=== PATIENT | male | born 1960 | race Caucasian/White ===

== ENCOUNTER 2024-08-31 10:51 | Inpatient (IN) | payer OTHER, MEDICAID ==
[~2024-08-31] VITALS: Ht 152.4 cm; Wt 58.0 kg
[~2024-08-31 10:51] MED LIST: GLYB5TAB8 PO; LIRA18IN2; METF-372 PO; TRIA25CA PO
--- NOTE | 2024-08-31 11:29 | ED.PDOC ---
History of Present Illness HPI Comments 63 y/o M, with PMHx of DM, cancer, anxiety, and depression, brought in by mother presents to the ED for abnormal labs. Per patient's mother, she received a call from patient's disability doctor was told patient has hypernatremia and should take patient to ED for further evaluation. Patient complains, of new onset symptoms of abdominal pain with associated abdominal distension starting this morning (08/31/24). Patient's mother denies, fatigue, nausea, vomiting, poor appetite, or fever. No other symptoms or modifying factors present at this time. Time Seen by MD: 11:23 Primary Care Provider: ALLISON Reviewed Notes: Nurses Notes, Medications, Allergies Allergies: Coded Allergies: Amoxicillin (Verified Allergy, Mild, 07/07/10) Clavulanic Acid (Verified Allergy, Mild, 07/07/10) Fluoxetine (Verified Allergy, 12/14/10) Home Meds Reported Medications Metformin Hydrochloride (Metformin Hcl) 1,000 Mg Tab, 1500 MG PO QPM 12/15/10 Metformin Hydrochloride (Metformin Hcl) 1,000 Mg Tab, 1000 MG PO QAM 12/15/10 Glyburide (Glyburide) 5 Mg Tab, 10 MG PO IBID 12/15/10 Hydrochlorothiazide W/Triamter (Hctz/Triamterene) 1 Cap Cap, 37.5 MG PO QAM 07/07/10 Liraglutide (Victoza) 18 Mg/3 Ml Inj, DAILY 07/07/10 Information Source: Patient, Relative (Mother) Mode of Arrival: Ambulatory Severity: Moderate Timing: Hours Duration: Since onset Prehospital treatment: None Past Medical History PAST MEDICAL HISTORY: Anxiety, Cancer, Depression, DM, HTN Family History Family History: Unobtainable Social History Smoker: Quit Greater Than 1 Year, Cigarettes Alcohol: Rarely Drugs: Denies Drug Use Lives In: Home Constitutional: denies: chills, diaphoresis, fatigue, fever, malaise, sweats, weakness, others EENTM: denies: blurred vision, double vision, ear bleeding, ear discharge, ear drainage, ear pain, ear ringing, eye pain, eye redness, hearing loss, mouth pain, mouth swelling, nasal discharge, nose bleeding, nose congestion, nose billy n, photophobia, tearing, throat pain, throat swelling, voice changes, others Respiratory: denies: cough, hemoptysis, orthopnea, SOB at rest, shortness of breath, SOB with excertion, stridor, wheezing, others Cardiovascular: denies: chest pain, dizzy spells, diaphoresis, Dyspnea on exertion, edema, irregular heart beat, left arm pain, lightheadedness, palpitations, PND, syncope, others Gastrointestinal: reports: abdomen distended, abdominal pain; denies: blood streaked bowels, constipated, diarrhea, dysphagia, difficulty swallowing, hematemesis, melena, nausea, poor appetite, poor fluid intake, rectal bleeding, rectal pain, vomiting, others Genitourinary: denies: burning, dysuria, flank pain, frequency, hematuria, incontinence, penile discharge, penile sore, pain, testicle pain, testicle swelling, urgency, others Neurological: denies: dizziness, fainting, headache, left sided numbness, left sided weakness, numbness, paresthesia, pre-existing deficit, right sided numbness, right sided weakness, seizure, speech problems, tingling, tremors, weakness, others Musculoskeletal: denies: back pain, gout, joint pain, joint swelling, muscle pain, muscle stiffness, neck pain, others Integumetry: denies: bruises, change in color, change in hair/nails, dryness, laceration, lesions, lumps, rash, wounds, others Allergic/Immunocompromised: denies: Difficulty Healing, Frequent Infections, Hives, Itching, others Hematologic/Lymphatic: denies: anemia, blood clots, easy bleeding, easy bruising, swollen glands, others Endocrine: denies: excessive hunger, excessive sweating, excessive thirst, excessive urination, flushing, intolerance to cold, intolerance to heat, unexplained weight gain, unexplained weight loss, others Psychiatric: denies: anxiety, bipolar disorder, depression, hopeless, panic disorder, schizophrenia, sleepless, suicidal, others All Other Systems: Reviewed and Negative Physical Exam General Appearance: Moderate Distress HEENT: Normal ENT Inspection, Pharynx Normal, TMs Normal Neck: Full Range of Motion, Non-Tender, Normal, Normal Inspection Respiratory: Chest Non-Tender, Lungs Clear, No Accessory Muscle Use, No Respiratory Distress, Normal Breath Sounds Cardiovascular: No Edema, No JVD, No Murmur, No Gallop, Normal Peripheral Pulses, Regular Rate/Rhythm Breast Exam: Deferred Gastrointestinal: Distended, No Organomegaly, No Pulsatile Mass, Normal Bowel Sounds, Soft, Tenderness Genitalia: Deferred Pelvic: Deferred Rectal: Deferred Extremities: No calf tenderness, Normal capillary refill, Normal inspection, Normal range of motion, Non-tender, No pedal edema Musculoskeletal : Apperance: Normal Neurologic: Alert, substation operator helper generation II-XII nml as Tested, No Motor Deficits, Normal Affect, Normal Mood, No Sensory Deficits Cerebellar Function: Normal Reflexes: Normal Skin: Dry, Normal Color, Warm Lymphatic: No Adenopathy Was a procedure done? Was a procedure done?: No Differential Dx Considerations may include: GASTRITIS, FOOD POISING, HYPERNATREMIA X-Ray, Labs, Meds, VS Vital Signs Date Time Temp Pulse Resp B/P (MAP) Pulse Ox O2 Delivery O2 Flow Rate FiO2 08/31/24 14:08 65 16 143/58 (86) 96 08/31/24 12:56 98.3 70 19 154/66 (95) 99 98.3 08/31/24 11:37 97.9 78 16 147/76 (99) 97 97.9 Lab Test 08/31/24 11:50 08/31/24 11:00 Range/Units White Blood Count 6.6 4.4-10.8 10^3/uL Red Blood Count 4.76 4.5-5.90 10^6/uL Hemoglobin 13.6 13.5-17.5 g/dL Hematocrit 41.6 41.0-53.0 % Mean Corpuscular Volume 87.3 80.0-100.0 fL Mean Corpuscular Hemoglobin 28.5 28.0-32.0 pg Mean Corpuscular Hemoglobin Concent 32.7 32.0-36.0 g/dL Red Cell Distribution Width 16.2 H 11.8-14.3 % Platelet Count 301 140-450 10^3/uL Mean Platelet Volume 6.9 6.9-10.8 fL Neutrophils (%) (Auto) 69.3 37.0-80.0 % Lymphocytes (%) (Auto) 18.4 10.0-50.0 % Monocytes (%) (Auto) 9.0 0.0-12.0 % Eosinophils (%) (Auto) 2.2 0.0-7.0 % Basophils (%) (Auto) 1.1 0.0-2.0 % Neutrophils # (Auto) 4.6 1.6-8.6 10 ^3/uL Lymphocytes # (Auto) 1.2 0.4-5.4 10 ^3/uL Monocytes # (Auto) 0.6 0-1.3 10 ^3/uL Eosinophils # (Auto) 0.1 0-0.8 10 ^3/uL Basophils # (Auto) 0.1 0-0.2 10 ^3/uL Nucleated Red Blood Cells 0.1 % Sodium Level 129 L 136-145 mmol/L Potassium Level 3.5 3.5-5.1 mmol/L Chloride Level 94 L 98-107 mmol/L Carbon Dioxide Level 27 20-31 mmol/L Anion Gap 8 5-15 Blood Urea Nitrogen 9 9-23 mg/dL Creatinine 0.56 L 0.700-1.30 mg/dL Glomerular Filtration Rate Calc 112 >90 mL/min BUN/Creatinine Ratio 16.1 10.0-20.0 Serum Glucose 122 H 74-106 mg/dL Calcium Level 9.1 8.7-10.4 mg/dL Total Bilirubin 0.3 0.2-1.0 mg/dL Aspartate Amino Transferase (AST) 13 13-40 U/L Alanine Aminotransferase (ALT) 14 7-40 U/L Alkaline Phosphatase 52 46-116 U/L Total Protein 6.6 5.7-8.2 g/dL Albumin 4.4 3.2-4.8 g/dL Lipase 37 12-53 U/L Urine Color Colorless Yellow Urine Clarity Clear Clear Urine pH 7.0 5.0-9.0 Urine Specific [place] 1.014 1.001-1.035 Urine Protein Negative Negative Urine Ketones Negative Negative Urine Blood Negative Negative /uL Urine Nitrite Negative Negative Urine Bilirubin Negative Negative Urine Urobilinogen Normal Negative mg/dL Urine Leukocyte Esterase Negative Negative /uL Urine RBC 1 0 - 3 /hpf Urine Microscopic WBC < 1 0-3 /HPF Urine Squamous Epithelial Cells None seen <5 /hpf Urine Bacteria None seen None Seen /hpf Urine Glucose 4+ H Normal mg/dL CT ABD PEL: IMPRESSION: 1. Trace right pleural effusion. 2. Moderate fecal retention throughout the large bowel. No rectal fecal impaction. 3. Subcutaneous soft tissue induration seen in right paraumbilical region that could relate to recent injections. Mild diffuse subcutaneous edema is noted. 4. T12 vertebral plana with 5 mm retropulsion. Mild depression of the superior endplate of the L1 with less than 10% loss of height without retropulsion. 5. A 2.5 x 1.5 cm density seen in the right inguinal canal that may represent lymph node or fluid. This can be further evaluated by ultrasound if clinically indicated. The patient's CBC is within normal limits The chemistry panel is within normal limits The urine test is negative for any infection At this time, the patient was being admitted to the hospitalist. Images Reviewed?: Images reviewed and evaluated by me Time of 1ST Reevaluation: 11:53 Reevaluation 1ST: Unchanged Patient Education/Counseling: Diagnosis, Treatment, Prognosis Family Education/Counseling: Diagnosis, Treatment, Prognosis Departure 1 Departure Time of Disposition: 15:55 Impression: Primary Impression: Acute abdominal pain Additional Impressions: Electrolyte imbalance Fecal impaction Disposition: ADMITTED INPATIENT Admit to: Med Surg Condition: Fair Critical Care Note Critical Care Time?: No Stability Stability form required: No Heart Score Heart Score: Heart Score Response (Comments) Value History N/A 0 EKG N/A 0 Age N/A 0 Risk Factors N/A 0 Troponin N/A 0 Total 0 I personally scribed for ERMELINDA COLEMAN MD ([email or web address]) on 08/31/24 at 11:29. Electronically submitted by Mackenzie Cleveland ([email or web address]). I personally scribed for ERMELINDA COLEMAN MD ([email or web address]) on 08/31/24 at 15:41. Electronically submitted by Mackenzie Cleveland ([email or web address]). ERMELINDA COLEMAN MD Aug 31, 2024 11:29
[2024-08-31 12:12] LABS: Basophils # (auto) 0.1 10 ^3/uL (0-0.2); Basophils % (auto) 1.1 % (0.0-2.0); Eosinophils # (auto) 0.1 10 ^3/uL (0-0.8); Eosinophils % (auto) 2.2 % (0.0-7.0); Hematocrit 41.6 % (41.0-53.0); Hemoglobin 13.6 g/dL (13.5-17.5); Lymphocytes # (auto) 1.2 10 ^3/uL (0.4-5.4); Lymphocytes % (auto) 18.4 % (10.0-50.0); Mean Corpuscular Hemoglobin 28.5 pg (28.0-32.0); Mean Corpuscular Hgb Conc. 32.7 g/dL (32.0-36.0); Mean Corpuscular Volume 87.3 fL (80.0-100.0); Monocytes # (auto) 0.6 10 ^3/uL (0-1.3); Neutrophils # (auto) 4.6 10 ^3/uL (1.6-8.6); Neutrophils % (auto) 69.3 % (37.0-80.0); Nucleated Red Blood Cells % 0.1 %; Platelet Count (auto) 301 10^3/uL (140-450); Red Blood Cells 4.76 10^6/uL (4.5-5.90); Red Cell Distribution Width 16.2 % (11.8-14.3); White Blood Cell 6.6 10^3/uL (4.4-10.8)
[2024-08-31 12:15] LABS: Urine Bacteria None Seen /hpf (None Seen)
[2024-08-31 12:25] LABS: Alanine Aminotransferase 14 U/L (7-40); Albumin 4.4 g/dL (3.2-4.8); Alkaline Phosphatase 52 U/L (46-116); Anion Gap 8 (5-15); Aspartate Aminotransferase 13 U/L (13-40); BUN/Creatinine Ratio 16.1 (10.0-20.0); Bilirubin, Total 0.3 mg/dL (0.2-1.0); Calcium 9.1 mg/dL (8.7-10.4); Carbon Dioxide 27 mmol/L (20-31); Lipase 37 U/L (12-53); Potassium 3.5 mmol/L (3.5-5.1); Total Protein 6.6 g/dL (5.7-8.2)
[2024-08-31 12:26] LABS: Blood Urea Nitrogen 9 mg/dL (9-23); Chloride 94 mmol/L (98-107); Glucose 122 mg/dL (74-106); Sodium 129 mmol/L (136-145)
[2024-08-31 12:35] LABS: Urine Blood Negative /uL (Negative); Urine Clarity Clear (Clear); Urine Color Colorless (Yellow); Urine Protein, UAD Negative (Negative); Urine Specific Gravity 1.014 (1.001-1.035); Urine Squamous Epithelial Cell None Seen /hpf (<5); Urine Urobilinogen Normal (Negative); Urine WBC < 1 /HPF (0-3)
--- NOTE | 2024-08-31 15:09 | DVH ---
Procedure: CT CT AB PEL WO CON-NO ORAL OR IV 08/31/2024 11:50 AM Indication: pain Comparison Study: None Technique: Axial images were obtained and reformatted in coronal and sagittal planes. All CT scans at this medical facility are performed using dose modulation techniques as appropriate to a performed e xam including the following: Automated exposure control was utilized; adjustment of the MA and/or KV according to patient size; and use of iterative reconstruction technique. CT Dose: CTDI volume is non e available mGy. Dose-length product is none available mGy*cm FINDINGS: Lower Chest: Trace right pleural effusion. Mild cardiomegaly. Heavy coronary artery calcification. Hepatobiliary: Unremarkable. Spleen: Unremarkable. Pancreas: Unremarkable. Adrenal Glands: Unremarkable. tract: The kidneys are normal in size bilaterally without hydronephrosis or nephrolithiasis. The u rinary bladder is unremarkable. GI tract: The stomach is grossly normal in appearance. No evidence of small bowel obstruction. Modera te fecal retention throughout the large bowel. No rectal fecal impaction. The appendix is not visuali zed. No inflammatory change is noted in the right lower quadrant. Lymphatics: No mesenteric, retroperitoneal or periportal lymphadenopathy. A 2.5 x 1.5 cm density seen in the right inguinal canal that may represent lymph node or fluid. Vasculature: The abdominal aorta is normal in caliber. Diffuse calcified plaque formation is noted. Pelvic Organs: Prostate is mildly enlarged. Bones/soft tissues: Subcutaneous soft tissue induration seen in right paraumbilical region that could relate to recent injections. Mild diffuse subcutaneous edema is noted. T12 vertebral plana with 5 m m retropulsion. Mild depression of the superior endplate of the L1 with less than 10% loss of height without retropulsion. Other: None. IMPRESSION: 1. Trace right pleural effusion. 2. Moderate fecal retention throughout the large bowel. No rectal fecal impaction. 3. Subcutaneous soft tissue induration seen in right paraumbilical region that could relate to recent injections. Mild diffuse subcutaneous edema is noted. 4. T12 vertebral plana with 5 mm retropulsion. Mild depression of the superior endplate of the L1 wi th less than 10% loss of height without retropulsion. 5. A 2.5 x 1.5 cm density seen in the right inguinal canal that may represent lymph node or fluid. Th is can be further evaluated by ultrasound if clinically indicated.
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
[2024-09-01] MEDS ORDERED: ONDANSETRON HCL 4 MG/2 ML VIAL IV PRN (04:00)
[2024-09-01] MEDS: ATORVASTATIN 20 MG TAB PO ONE (04:29)
[2024-09-01] MEDS: POTASSIUM EFFERVESENT TAB 25 MEQ PO ONE (04:29)
[2024-09-01] MEDS: PANTOPRAZOLE 40 MG/10 ML VIAL INJ IV ONE (04:30)
[2024-09-01 04:33] VITALS: PULSE 74; RESP 16; O2SAT 99
[2024-09-01] MEDS: POLYETHYLENE GLYCOL 17 GM PWDR PO ONE (06:53)
[2024-09-01] MEDS: DOCUSATE SOD 100 MG CAP PO ONE (06:53)
[2024-09-01 07:17] LABS: Alanine Aminotransferase 17 U/L (7-40); Alkaline Phosphatase 63 U/L (46-116); Calcium 9.7 mg/dL (8.7-10.4)
[2024-09-01 07:18] LABS: Anion Gap 11 (5-15); Aspartate Aminotransferase 18 U/L (13-40); BUN/Creatinine Ratio 21.2 (10.0-20.0); Bilirubin, Total 0.4 mg/dL (0.2-1.0); Blood Urea Nitrogen 11 mg/dL (9-23); Carbon Dioxide 22 mmol/L (20-31); Magnesium 2.5 mg/dL (1.6-2.6); Potassium 4.5 mmol/L (3.5-5.1); Total Protein 7.5 g/dL (5.7-8.2)
[2024-09-01 07:20] LABS: Albumin 4.9 g/dL (3.2-4.8); Basophils # (auto) 0.1 10 ^3/uL (0-0.2); Chloride 96 mmol/L (98-107); Eosinophils # (auto) 0.1 10 ^3/uL (0-0.8); Eosinophils % (auto) 1.8 % (0.0-7.0); Glucose 132 mg/dL (74-106); Hematocrit 43.8 % (41.0-53.0); Hemoglobin 14.9 g/dL (13.5-17.5); Lymphocytes # (auto) 1.1 10 ^3/uL (0.4-5.4); Lymphocytes % (auto) 13.9 % (10.0-50.0); Mean Corpuscular Hemoglobin 30.1 pg (28.0-32.0); Mean Corpuscular Hgb Conc. 33.9 g/dL (32.0-36.0); Mean Corpuscular Volume 88.6 fL (80.0-100.0); Monocytes # (auto) 0.9 10 ^3/uL (0-1.3); Monocytes % (auto) 11.1 % (0.0-12.0); Neutrophils # (auto) 5.9 10 ^3/uL (1.6-8.6); Neutrophils % (auto) 72.2 % (37.0-80.0); Platelet Count (auto) 338 10^3/uL (140-450); Red Blood Cells 4.94 10^6/uL (4.5-5.90); Red Cell Distribution Width 16.4 % (11.8-14.3); Sodium 129 mmol/L (136-145); White Blood Cell 8.1 10^3/uL (4.4-10.8)
[2024-09-01] MEDS: FLEET ENEMA(ADULT) 135 ML PR ONE (07:20)
[2024-09-01] MEDS: ENOXAPARIN SOD 40 MG/0.4 ML SYRINGE SC SCH (09:01)
[2024-09-01] MEDS: EMPAGLIFLOZIN 10 MG TAB PO SCH (09:01)
[2024-09-01 09:49] LABS: Triglycerides 102 mg/dL (< 150)
[2024-09-01 09:50] LABS: LDL Cholesterol 83 mg/dL (< 100)
[2024-09-01 09:51] LABS: Cholesterol 173 mg/dL (< 200); HDL Cholesterol 74 mg/dL (40-59)
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
[2024-09-01 16:32] VITALS: BP 146/74; PULSE 86; RESP 16; TEMP 98.1; O2SAT 96
[2024-09-01] MEDS ORDERED: DAPA1TAB4 PO (17:05)
[2024-09-01] MEDS ORDERED: ACAR25TA PO (17:05)
[2024-09-01] MEDS ORDERED: SIMV20TA20 PO (17:05)
[2024-09-01] MEDS ORDERED: PIOG1TAB37 PO (17:06)
[2024-09-01] MEDS ORDERED: RISP0.5T45 PO (17:07)
[2024-09-01] MEDS ORDERED: CLOM25CA15 PO (17:07)
[2024-09-01] MEDS: ACETAMINOPHEN 500 MG TAB or CAP PO PRN (18:00)
[2024-09-01 21:00] VITALS: BP 105/82; PULSE 90; RESP 16; TEMP 98.1; O2SAT 97
[2024-09-01] MEDS: DOCUSATE SOD 100 MG CAP PO SCH (21:14)
[2024-09-01] MEDS: ATORVASTATIN 20 MG TAB PO SCH (21:14)
[2024-09-02 01:00] VITALS: BP 150/70; PULSE 79; RESP 18; TEMP 97.4; O2SAT 97
[2024-09-02 05:00] VITALS: BP 166/63; PULSE 79; RESP 18; TEMP 98.7; O2SAT 95
[2024-09-02] MEDS: TRIAMTERENE/HCTZ 37.5/25 MG CAP/TAB PO SCH (05:31)
[2024-09-02] MEDS: hydrALAZINE HCL 20 MG/ML VL IV ONE (06:40)
[2024-09-02 09:00] VITALS: BP 150/57; PULSE 87; RESP 16; TEMP 97.4; O2SAT 92
[2024-09-02 09:27] VITALS: BP 166/63; PULSE 79; RESP 18; TEMP 98.7; O2SAT 95
[2024-09-02] MEDS ORDERED: POLYETHYLENE GLYCOL 17 GM PWDR PO SCH (10:00)
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
== END 2024-09-02 10:10 | disposition home or self-care (01) | DRG 392 ==
LOC: ER 10:51 → OVERFLOW 09-01 03:47 → WEST WING 09-01 16:01
PROVIDERS: ADMIT Internal Medicine; ATTEND Internal Medicine
DX: A08.4 Viral intestinal infection, unspecified (principal); E87.1 Hypo-osmolality and hyponatremia; Q87.11 Prader-Willi syndrome; K59.00 Constipation, unspecified; E11.9 Type 2 diabetes mellitus without complications; I10 Essential (primary) hypertension; Z88.1 Allergy status to other antibiotic agents; Z79.84 Long term (current) use of oral hypoglycemic drugs; Z79.899 Other long term (current) drug therapy; Z87.891 Personal history of nicotine dependence
CPT/HCPCS: 36415; 74176; 80053; 80061; 81001; 83036; 83690; 83735; 83930; 84443; 85025; 96374; G0378; J2470

== ENCOUNTER 2024-10-24 12:31 | Emergency (ER) | payer OTHER, MEDICAID ==
[~2024-10-24] VITALS: Ht 152.4 cm; Wt 55.0 kg
[~2024-10-24 12:31] MED LIST changes: +ACAR25TA PO; +CLOM25CA15 PO; +DAPA1TAB4 PO; +PIOG1TAB37 PO; +RISP0.5T45 PO; +SIMV20TA20 PO
[2024-10-24] MEDS: SULFAMETHOX W/TRIMETH(800/160MG) DS TAB PO ONE (13:17)
[2024-10-24] MEDS: HYDROcodone-ACET 5/325MG TAB PO ONE (13:18)
[2024-10-24 13:20] VITALS: PULSE 78; RESP 16; O2SAT 99
--- NOTE | 2024-10-24 13:26 | ED.PDOC ---
History of Present Illness HPI Comments 63-year-old male presents to the ER with family member and with a prior medical history of anxiety, cancer, depression, diabetes, hypertension in the chief complaint of face pain. Family member reports the the PCP of the patient wound was worried above the redness on the right side of the patient's face possibly be cellulitis patient notes the the redness on the face has been there for two months with it being sensitive. Denies chills, fever, N/V/D, SOB, CP. No other associated symptoms, modifiers, recent injuries or sick contacts present at this time. Chief Complaint: Face pain Time Seen by MD: 13:05 Primary Care Provider: ALLISON Reviewed Notes: Nurses Notes, Medications, Allergies Allergies: Coded Allergies: Amoxicillin (Verified Allergy, Mild, 07/07/10) Clavulanic Acid (Verified Allergy, Mild, 07/07/10) Fluoxetine (Verified Allergy, Unknown, 09/01/24) Home Meds Reported Medications Clomipramine HCl (Clomipramine Hydrochlorid) 25 Mg Cap, 1 CAP PO BID 09/01/24 Risperidone (Risperidone) 0.5 Mg Tab, 1 TAB PO DAILY 09/01/24 Pioglitazone Hydrochloride (PIOGLITAZONE HCL) 30 Mg Tab, 1 TAB PO DAILY 09/01/24 Acarbose (Acarbose) 25 Mg Tab, TAB PO 09/01/24 Simvastatin (Simvastatin) 20 Mg Tab, 1 TAB PO 09/01/24 Dapagliflozin Propanediol (Farxiga) 10 Mg Tab, 1 TAB PO DAILY 09/01/24 Metformin Hydrochloride (Metformin Hcl) 1,000 Mg Tab, 1500 MG PO QPM 12/15/10 Metformin Hydrochloride (Metformin Hcl) 1,000 Mg Tab, 1000 MG PO QAM 12/15/10 Glyburide (Glyburide) 5 Mg Tab, 10 MG PO IBID 12/15/10 Hydrochlorothiazide W/Triamter (Hctz/Triamterene) 1 Cap Cap, 37.5 MG PO QAM 07/07/10 Liraglutide (Victoza) 18 Mg/3 Ml Inj, DAILY 07/07/10 Information Source: Patient, Relative Mode of Arrival: Ambulatory Severity: Moderate Timing: Months Duration: Since onset Prehospital treatment: None Past Medical History PAST MEDICAL HISTORY: Anxiety, Cancer, Depression, DM, HTN Surgical History: Denies all surgeries Family History Family History: Reviewed,noncontributory to illness, Unknown Social History Smoker: Quit Greater Than 1 Year, Cigarettes Alcohol: Rarely Drugs: Denies Drug Use Lives In: Home Constitutional: reports: others (Face pain); denies: chills, diaphoresis, fatigue, fever, malaise, sweats, weakness EENTM: denies: blurred vision, double vision, ear bleeding, ear discharge, ear drainage, ear pain, ear ringing, eye pain, eye redness, hearing loss, mouth pain , mouth swelling, nasal discharge, nose bleeding, nose congestion, nose pain, photophobia, tearing, throat pain, throat swelling, voice changes, others Respiratory: denies: cough, hemoptysis, orthopnea, SOB at rest, shortness of breath, SOB with excertion, stridor, wheezing, others Cardiovascular: denies: chest pain, dizzy spells, diaphoresis, Dyspnea on exertion, edema, irregular heart beat, left arm pain, lightheadedness, palpitations, PND, syncope, others Gastrointestinal: denies: abdomen distended, abdominal pain, blood streaked bowels, constipated, diarrhea, dysphagia, difficulty swallowing, hematemesis, melena, nausea, poor appetite, poor fluid intake, rectal bleeding, rectal pain, vomiting, others Genitourinary: denies: burning, dysuria, flank pain, frequency, hematuria, incontinence, penile discharge, penile sore, pain, testicle pain, testicle swelling, urgency, others Neurological: denies: dizziness, fainting, headache, left sided numbness, left sided weakness, numbness, paresthesia, pre-existing deficit, right sided numbness, right sided weakness, seizure, speech problems, tingling, tremors, weakness, others Musculoskeletal: denies: back pain, gout, joint pain, joint swelling, muscle pain, muscle stiffness, neck pain, others Integumetry: denies: bruises, change in color, change in hair/nails, dryness, laceration, lesions, lumps, rash, wounds, others Allergic/Immunocompromised: denies: Difficulty Healing, Frequent Infections, Hives, Itching, others Hematologic/Lymphatic: denies: anemia, blood clots, easy bleeding, easy bruising, swollen glands, others Endocrine: denies: excessive hunger, excessive sweating, excessive thirst, excessive urination, flushing, intolerance to cold, intolerance to heat, unexplained weight gain, unexplained weight loss, others Psychiatric: denies: anxiety, bipolar disorder, depression, hopeless, panic disorder, schizophrenia, sleepless, suicidal, others All Other Systems: Reviewed and Negative Physical Exam General Appearance: No Apparent Distress, Normal HEENT: Normal ENT Inspection, Pharynx Normal, TMs Normal Neck: Full Range of Motion, Non-Tender, Normal, Normal Inspection Respiratory: Chest Non-Tender, Lungs Clear, No Accessory Muscle Use, No Respiratory Distress, Normal Breath Sounds Cardiovascular: No Edema, No JVD, No Murmur, No Gallop, Normal Peripheral Pulses, Regular Rate/Rhythm Breast Exam: Deferred Gastrointestinal: No Organomegaly, Non Tender, No Pulsatile Mass, Normal Bowel Sounds, Soft Genitalia: Deferred Pelvic: Deferred Rectal: Deferred Extremities: No calf tenderness, Normal capillary refill, Normal inspection, Normal range of motion, Non-tender, No pedal edema Musculoskeletal : Apperance: Normal Neurologic: Alert, ciso II-XII nml as Tested, No Motor Deficits, Normal Affect, Normal Mood, No Sensory Deficits Cerebellar Function: Normal Reflexes: Normal Skin: Dry, Normal Color, Warm Lymphatic: No Adenopathy Was a procedure done? Was a procedure done?: No Differential Dx Considerations may include: Cellulitis, abscess X-Ray, Labs, Meds, VS Vital Signs Date Time Temp Pulse Resp B/P (MAP) Pulse Ox O2 Delivery O2 Flow Rate FiO2 10/24/24 13:20 78 16 99 Room Air* 0 21 10/24/24 12:37 97.4 78 16 132/61 (84) 99 97.4 10/24/24 12:37 97.4 78 16 132/61 (84) 99 97.4 Lab Test 10/24/24 13:18 Range/Units White Blood Count 4.8 4.4-10.8 10^3/uL Red Blood Count 4.53 4.5-5.90 10^6/uL Hemoglobin 13.2 L 13.5-17.5 g/dL Hematocrit 38.9 L 41.0-53.0 % Mean Corpuscular Volume 85.8 80.0-100.0 fL Mean Corpuscular Hemoglobin 29.1 28.0-32.0 pg Mean Corpuscular Hemoglobin Concent 33.9 32.0-36.0 g/dL Red Cell Distribution Width 15.3 H 11.8-14.3 % Platelet Count 313 140-450 10^3/uL Mean Platelet Volume 6.9 6.9-10.8 fL Neutrophils (%) (Auto) 58.2 37.0-80.0 % Lymphocytes (%) (Auto) 28.1 10.0-50.0 % Monocytes (%) (Auto) 10.7 0.0-12.0 % Eosinophils (%) (Auto) 1.8 0.0-7.0 % Basophils (%) (Auto) 1.2 0.0-2.0 % Neutrophils # (Auto) 2.8 1.6-8.6 10 ^3/uL Lymphocytes # (Auto) 1.4 0.4-5.4 10 ^3/uL Monocytes # (Auto) 0.5 0-1.3 10 ^3/uL Eosinophils # (Auto) 0.1 0-0.8 10 ^3/uL Basophils # (Auto) 0.1 0-0.2 10 ^3/uL Nucleated Red Blood Cells 0.2 % Sodium Level 130 L 136-145 mmol/L Potassium Level 3.9 3.5-5.1 mmol/L Chloride Level 94 L 98-107 mmol/L Carbon Dioxide Level 26 20-31 mmol/L Anion Gap 10 5-15 Blood Urea Nitrogen 10 9-23 mg/dL Creatinine 0.54 L 0.700-1.30 mg/dL Glomerular Filtration Rate Calc 113 >90 mL/min BUN/Creatinine Ratio 18.5 10.0-20.0 Serum Glucose 118 H 74-106 mg/dL Calcium Level 9.5 8.7-10.4 mg/dL Current Medications Medications (Trade) Dose Ordered Sig/Kit Route Start Time Stop Time Status Last Admin Acetaminophen/ Hydrocodone Bitart ([place] 5/325MG Tab) 1 tab ONCE ONCE PO 10/24/24 13:15 10/24/24 13:16 DC 10/24/24 13:18 Trimethoprim/ Sulfamethoxazole (Bactrim Ds Tablet) 1 tab ONCE ONCE PO 10/24/24 13:15 10/24/24 13:16 DC 10/24/24 13:17 Time of 1ST Reevaluation: 13:35 Reevaluation 1ST: Unchanged Patient Education/Counseling: Diagnosis, Treatment, Prognosis Family Education/Counseling: Diagnosis, Treatment, Prognosis Departure 1 Departure Time of Disposition: 14:17 (Patient has cellulitis of the face. We will dis charge patient home with antibiotics and outpatient follow up.) Impression: Primary Impression: Cellulitis Qualified Codes: L03.211 - Cellulitis of face Disposition: HOME / SELF CARE / HOMELESS Condition: Stable Additional Instructions: You have cellulitis. This is a skin infection. You were prescribed antibiotics. Please take as directed. You can take tylenol and motrin as needed for pain. It is important that you follow up with your regular doctor within one week to ensure you are doing well. If your symptoms worsen or you have any other concerns then please return to the ER. e-Prescriptions Sulfamethoxazole W/Trimethopri (Bactrim Ds Tablet) 1 Tab Tb 1 TAB PO BID for 7 Days, #14 TAB Prov: FRANCESCA LORA MD 10/24/24 Discharged With: Relative (Mother) Critical Care Note Critical Care Time?: No Stability Stability form required: No I personally scribed for FRANCESCA LORA MD ([email or web address]) on 10/24/24 at 13:26. Electronically submitted by Kali Crocker ([email or web address]). FRANCESCA LORA MD Oct 24, 2024 13:26
[2024-10-24 13:37] LABS: Basophils # (auto) 0.1 10 ^3/uL (0-0.2); Basophils % (auto) 1.2 % (0.0-2.0); Eosinophils # (auto) 0.1 10 ^3/uL (0-0.8); Eosinophils % (auto) 1.8 % (0.0-7.0); Hematocrit 38.9 % (41.0-53.0); Hemoglobin 13.2 g/dL (13.5-17.5); Lymphocytes # (auto) 1.4 10 ^3/uL (0.4-5.4); Lymphocytes % (auto) 28.1 % (10.0-50.0); Mean Corpuscular Hemoglobin 29.1 pg (28.0-32.0); Mean Corpuscular Hgb Conc. 33.9 g/dL (32.0-36.0); Mean Corpuscular Volume 85.8 fL (80.0-100.0); Monocytes # (auto) 0.5 10 ^3/uL (0-1.3); Monocytes % (auto) 10.7 % (0.0-12.0); Neutrophils # (auto) 2.8 10 ^3/uL (1.6-8.6); Neutrophils % (auto) 58.2 % (37.0-80.0); Nucleated Red Blood Cells % 0.2 %; Platelet Count (auto) 313 10^3/uL (140-450); Red Blood Cells 4.53 10^6/uL (4.5-5.90); Red Cell Distribution Width 15.3 % (11.8-14.3); White Blood Cell 4.8 10^3/uL (4.4-10.8)
[2024-10-24 13:46] LABS: Potassium 3.9 mmol/L (3.5-5.1)
[2024-10-24 13:47] LABS: Anion Gap 10 (5-15); Calcium 9.5 mg/dL (8.7-10.4); Carbon Dioxide 26 mmol/L (20-31)
[2024-10-24 13:52] LABS: BUN/Creatinine Ratio 18.5 (10.0-20.0); Blood Urea Nitrogen 10 mg/dL (9-23)
[2024-10-24 13:53] LABS: Chloride 94 mmol/L (98-107); Glucose 118 mg/dL (74-106); Sodium 130 mmol/L (136-145)
[2024-10-24] MEDS ORDERED: BACDST PO (14:19)
[2024-10-24 14:20] VITALS: BP 118/67; PULSE 68; RESP 18; TEMP 98.4; O2SAT 94
== END 2024-10-24 14:24 | disposition home or self-care (01) ==
LOC: ER 12:31
DX: L03.211 Cellulitis of face (principal); F41.9 Anxiety disorder, unspecified; E11.9 Type 2 diabetes mellitus without complications; I10 Essential (primary) hypertension; Z88.0 Allergy status to penicillin; Z79.899 Other long term (current) drug therapy
CPT/HCPCS: 36415; 80048; 85025

== ENCOUNTER 2024-11-02 06:22 | Inpatient (IN) | payer OTHER, MEDICAID ==
[~2024-11-02] VITALS: Ht 167.6 cm; Wt 63.6 kg
[~2024-11-02 06:22] MED LIST changes: +BACDST PO
--- NOTE | 2024-11-02 06:48 | ED.PDOC ---
Altered Mental Status HPI Comments 63 y.o male presents to the ED via EMS for an evaluation of altered mental status. EMS reports, per family patient was last seen normal around 2300 and found him at 0100 walking around the house not acting himself. Upon ED arrival, patient is not answering any questions, does respond to painful stimuli but no further information obtained. Patient has a history of DM per family and BG read 99 for EMS on scene. Chief Complaint: ALOC Time Seen by MD: 06:38 Primary Care Provider: ALLISON Reviewed Notes: Nurses Notes, Laborer Road Notes, Medications, Allergies Allergies: Coded Allergies: Amoxicillin (Verified Allergy, Mild, 07/07/10) Clavulanic Acid (Verified Allergy, Mild, 07/07/10) Fluoxetine (Verified Allergy, Unknown, 09/01/24) Home Meds Active Scripts Sulfamethoxazole W/Trimethopri (Bactrim Ds Tablet) 1 Tab Tb, 1 TAB PO BID for 7 Days, #14 TAB Prov:FRANCESCA LORA MD 10/24/24 Reported Medications Clomipramine HCl (Clomipramine Hydrochlorid) 25 Mg Cap, 1 CAP PO BID 09/01/24 Risperidone (Risperidone) 0.5 Mg Tab, 1 TAB PO DAILY 09/01/24 Pioglitazone Hydrochloride (PIOGLITAZONE HCL) 30 Mg Tab, 1 TAB PO DAILY 09/01/24 Acarbose (Acarbose) 25 Mg Tab, TAB PO 09/01/24 Simvastatin (Simvastatin) 20 Mg Tab, 1 TAB PO 09/01/24 Dapagliflozin Propanediol (Farxiga) 10 Mg Tab, 1 TAB PO DAILY 09/01/24 Metformin Hydrochloride (Metformin Hcl) 1,000 Mg Tab, 1500 MG PO QPM 12/15/10 Metformin Hydrochloride (Metformin Hcl) 1,000 Mg Tab, 1000 MG PO QAM 12/15/10 Glyburide (Glyburide) 5 Mg Tab, 10 MG PO IBID 12/15/10 Hydrochlorothiazide W/Triamter (Hctz/Triamterene) 1 Cap Cap, 37.5 MG PO QAM 07/07/10 Liraglutide (Victoza) 18 Mg/3 Ml Inj, DAILY 07/07/10 Information Source: Emergency Med Personnel Mode of Arrival: EMS Severity: Moderate Timing: Hours Duration: Since onset Prehospital treatment: 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), Logging Contractor Quality: Decreased Alertness, Change in Behavior Recent: Other History of: Diabetes Past Medical History PAST MEDICAL HISTORY: Anxiety, Cancer, Depression, DM, HTN Surgical History: Denies all surgeries Family History Family History: Reviewed,noncontributory to illness, Unknown Social History Smoker: Quit Greater Than 1 Year, Cigarettes Alcohol: Rarely Drugs: Denies Drug Use Lives In: Home Unable to Obtain due to: Altered Mental Status Physical Exam General Appearance: None, Other (Patient responds to name but does not follow commands ) HEENT: Normal ENT Inspection Neck: Normal, Normal Inspection Respiratory: No Accessory Muscle Use, No Respiratory Distress, Normal Breath Sounds Cardiovascular: No Edema, No JVD, No Murmur, No Gallop, Normal Peripheral Pulses, Regular Rate/Rhythm Breast Exam: Deferred Gastrointestinal: Non Tender, Normal Bowel Sounds Genitalia: Deferred Pelvic: Deferred Rectal: Deferred Extremities: Normal inspection Neurologic: No Motor Deficits, Other (Patient responds to name but does not follow commands ) Cerebellar Function: NOT DONE Reflexes: NOT DONE (unable to test due to altered mental status ) Skin: Dry, Normal Color, Warm Lymphatic: NOT DONE Was a procedure done? Was a procedure done?: No Differential Diagnosis (ALOC) Differential Diagnosis: Dehydration, Hypoglycemia, Seizure, Heart Failure, Renal Failure X-Ray, Labs, Meds, VS Vital Signs Date Time Temp Pulse Resp B/P (MAP) Pulse Ox O2 Delivery O2 Flow Rate FiO2 11/02/24 08:00 72 11/02/24 07:01 75 11 97 Room Air* 0 21 11/02/24 06:59 98.3 75 11 182/86 (118) 97 98.3 11/02/24 06:26 70 11/02/24 06:25 98.6 73 16 163/78 (106) 100 98.6 Lab Test 11/02/24 08:23 11/02/24 07:47 11/02/24 07:45 11/02/24 07:21 Range/Units Troponin I High Sensitivity Pending 4 </=54 ng/L POC Glucose 103 70-106 mg/dl White Blood Count 5.1 4.4-10.8 10^3/uL Red Blood Count 5.34 4.5-5.90 10^6/uL Hemoglobin 15.7 13.5-17.5 g/dL Hematocrit 47.0 41.0-53.0 % Mean Corpuscular Volume 88.0 80.0-100.0 fL Mean Corpuscular Hemoglobin 29.5 28.0-32.0 pg Mean Corpuscular Hemoglobin Concent 33.5 32.0-36.0 g/dL Red Cell Distribution Width 15.7 H 11.8-14.3 % Platelet Count 292 140-450 10^3/uL Mean Platelet Volume 6.8 L 6.9-10.8 fL Neutrophils (%) (Auto) 58.5 37.0-80.0 % Lymphocytes (%) (Auto) 26.2 10.0-50.0 % Monocytes (%) (Auto) 11.9 0.0-12.0 % Eosinophils (%) (Auto) 2.3 0.0-7.0 % Basophils (%) (Auto) 1.1 0.0-2.0 % Neutrophils # (Auto) 3.0 1.6-8.6 10 ^3/uL Lymphocytes # (Auto) 1.3 0.4-5.4 10 ^3/uL Monocytes # (Auto) 0.6 0-1.3 10 ^3/uL Eosinophils # (Auto) 0.1 0-0.8 10 ^3/uL Basophils # (Auto) 0.1 0-0.2 10 ^3/uL Nucleated Red Blood Cells 0.1 % B-Type Natriuretic Peptide Pending Sodium Level 130 L 136-145 mmol/L Potassium Level 4.4 3.5-5.1 mmol/L Chloride Level 94 L 98-107 mmol/L Carbon Dioxide Level 27 20-31 mmol/L Anion Gap 9 5-15 Blood Urea Nitrogen 12 9-23 mg/dL Creatinine 0.78 0.700-1.30 mg/dL Glomerular Filtration Rate Calc 101 >90 mL/min BUN/Creatinine Ratio 15.4 10.0-20.0 Serum Glucose 118 H 74-106 mg/dL Lactic Acid Level 1.4 0.4-2.0 mmol/L Calcium Level 9.9 8.7-10.4 mg/dL Total Bilirubin 0.7 0.2-1.0 mg/dL Aspartate Amino Transferase (AST) 23 <34 U/L Alanine Aminotransferase (ALT) 16 7-40 U/L Alkaline Phosphatase 52 46-116 U/L Total Protein 7.7 5.7-8.2 g/dL Albumin 5.1 H 3.2-4.8 g/dL Plasma/Serum Blood Alcohol < 3.0 <10 mg/dL Current Medications Medications (Trade) Dose Ordered Sig/Kit Route Start Time Stop Time Status Last Admin Sodium Chloride 1,000 ml @ 1,000 mls/hr Q1H ONCE IV 11/02/24 07:00 11/02/24 07:59 DC 11/02/24 08:30 CHEST RADIOGRAPH Indication: ams Technique: Single frontal view of the chest was obtained COMPARISON: None FINDINGS: Lines and Tubes: None Lungs: Clear Pleura: No effusion. No pneumothorax. Cardiomediastinal contours: Unremarkable Bones: Unremarkable IMPRESSION: No acute disease. EXAM: CT HEAD WITHOUT CONTRAST INDICATION: ams TECHNIQUE: CT of the head without intravenous contrast. Coronal and sagittal reformatted images are submitted. Radiation Dose : 1. Head: CT Dose: CTDI volume is 51.17 mGy. Dose-length product is 820.47 mGy*cm The dose indicators for CT are the volume Computed Tomography (CT) Dose Index (CTDIvol) and the Dose Length Product (DLP), and are measured in units of mGy and mGy-cm, respectively. These indicators are not patient dose, but values generated from the CT scanner acquisition factors. The report includes radiation exposure data for exposures received during this examination. All CT scans at this medical facility are performed using dose modulation techniques as appropriate to a performed exam including the following: Automated exposure control was utilized; adjustment of the MA and/or KV according to patient size; and use of iterative reconstruction technique. COMPARISON: None FINDINGS: There is no evidence of acute intracranial hemorrhage, extra-axial collection, mass effect, midline shift, herniation or hydrocephalus. There are periventricular and subcortical hypodensities, nonspecific, but likely reflecting sequelae of chronic microvascular ischemic changes. The ventricles, sulci and cisterns are age appropriate. The brand-white differentiation is intact. The mastoid air cells are clear. There is mucosal thickening in the left maxillary sinus. No depressed calvarial fracture. The surrounding soft tissues are unremarkable. IMPRESSION: 1. No acute intracranial abnormality. Time of 1ST Reevaluation: 07:00 Reevaluation 1ST: Unchanged Patient Education/Counseling: Other (altered mental status ) Family Education/Counseling: No Family Present SEPSIS Sepsis Screen Date sepsis recognized/suspect: Nov 02, 2024 Time Sepsis recognized/suspect: 0625 Recent Procedure: No On Antibiotic Therapy: No Respiratory Rate >20: No Heart Rate >90: No Temp<36 C (96.8 F) or >38.3 C: No SBP <90 or MAP <65 mmHG: No New Acute Mental Status Change: No Is the patient on CPAP, BIPAP,: No Orders/Vitals/Labs Physician Orders B-Type Natriuretic Peptide (11/02/24 06:52) Drug Screen (11/02/24 06:52) Urinalysis (11/02/24 06:52) Chest Portable (11/02/24 06:52) Head Without Contrast (11/02/24 06:52) Blood Culture (11/02/24 06:52) Troponin-I Hs (11/02/24 07:52) Troponin-I Hs (11/02/24 09:52) Vital Signs Date Time Temp Pulse Resp B/P (MAP) Pulse Ox O2 Delivery O2 Flow Rate FiO2 11/02/24 08:00 72 11/02/24 07:01 75 11 97 Room Air* 0 21 11/02/24 06:59 98.3 75 11 182/86 (118) 97 98.3 11/02/24 06:26 70 11/02/24 06:25 98.6 73 16 163/78 (106) 100 98.6 Laboratory Tests Test 11/02/24 07:21 11/02/24 07:45 Lactic Acid Level 1.4 mmol/L (0.4-2.0) White Blood Count 5.1 10^3/uL (4.4-10.8) Medications Medications Dose Ordered Sig/Kit Route Start Time Stop Time Status Last Admin Dose Admin Sodium Chloride 1,000 ml @ 1,000 mls/hr Q1H ONCE IV 11/02/24 07:00 11/02/24 07:59 DC 11/02/24 08:30 Departure 1 Departure Time of Disposition: 08:51 (Patient with a worsening altered mental status. Labs and CT scan were benign. We will admit patient for further workup and e xpert consultation) Impression: Primary Impression: Metabolic encephalopathy Additional Impression: Generalized weakness Disposition: ADMITTED INPATIENT Admit to: Med Surg Condition: Guarded Critical Care Note Critical Care Time?: Yes Critical care comment: Altered mental status Authorized and Performed by: Francesca Lora MD Total critical care time: Approximately 39 minutes Due to a high probability of clinically significant, life threatening deterioration, the patient required my highest level of preparedness to intervene emergently and I personally spent this critical care time directly and personally managing the patient. This critical care time included obtaining a history; examining the patient; pulse oximetry; ordering and review of studies; arranging urgent treatment with development of a management plan; evaluation of patient's response to treatment; frequent reassessment; and, discussions with other providers. This critical care time was performed to assess and manage the high probability of imminent, life-threatening deterioration that could result in multi-organ failure. It was exclusive of separately billable procedures and treating other patients and teaching time. Please see my other sections and the rest of the note for further information on patient assessment and treatment. Stability Stability form required: No Heart Score Heart Score: Heart Score Response (Comments) Value History N/A 0 EKG N/A 0 Age N/A 0 Risk Factors N/A 0 Troponin N/A 0 Total 0 I personally scribed for FRANCESCA LORA MD [facility] on 11/02/24 at 06:48. Electronically submitted by Angie Pinto (Training Advisor). I personally scribed for FRANCESCA LORA MD ([email or web address]) on 11/02/24 at 06:56. Electronically submitted by Angie Pinto (Training Advisor). I personally scribed for FRANCESCA LORA MD ([email or web address]) on 11/02/24 at 08:09. Electronically submitted by Angie Pinto (Training Advisor). FRANCESCA LORA MD Nov 02, 2024 06:48
--- NOTE | 2024-11-02 06:53 | ECG ---
[facility] Test Date: 2024-11-02 Test Time: 06:26:50 Pat Name: CURT MOREL Department: ED Room: Gender: M Grocery Shopper: JOSE : 1960 Requested By: FRANCESCA LORA Order Number: [id number] Reading MD: Measurements Intervals [place]mond Rate: 70 P: 17 MN: 196 QRS: 10 QRSD: 125 T: 31 QT: 434 QTc: 469 Interpretive Statements Sinus rhythm IVCD, consider atypical RBBB Please click the below link to view image of tracing.
[2024-11-02 07:01] VITALS: PULSE 75; RESP 11; O2SAT 97
--- NOTE | 2024-11-02 07:49 | DVH ---
EXAM: CT HEAD WITHOUT CONTRAST INDICATION: ams TECHNIQUE: CT of the head without intravenous contrast. Coronal and sagittal reformatted images are s ubmitted. Radiation Dose : 1. Head: CT Dose: CTDI volume is 51.17 mGy. Dose-length product is 820.47 mGy*cm The dose indicators for CT are the volume Computed Tomography (CT) Dose Index (CTDIvol) and the Dose Length Product (DLP), and are measured in units of mGy and mGy-cm, respectively. These indicators are not patient dose, but values generated from the CT scanner acquisition factors. The report includes radiation exposure data for exposures received during this examination. All CT scans at this medical facility are performed using dose modulation techniques as appropriate to a performed exam including the following: Automated exposure control was utilized; adjustment of the MA and/or KV according to patient size; and use of iterative reconstruction technique. COMPARISON: None FINDINGS: There is no evidence of acute intracranial hemorrhage, extra-axial collection, mass effect, midline s hift, herniation or hydrocephalus. There are periventricular and subcortical hypodensities, nonspecific, but likely reflecting sequelae of chronic microvascular ischemic changes. The ventricles, sulci and cisterns are age appropriate. The brand-white differentiation is intact. The mastoid air cells are clear. There is mucosal thickening in the left maxillary sinus. No depressed calvarial fracture. The surrounding soft tissues are unremarkable. IMPRESSION: 1. No acute intracranial abnormality.
--- NOTE | 2024-11-02 07:51 | DVH ---
CHEST RADIOGRAPH Indication: ams Technique: Single frontal view of the chest was obtained COMPARISON: None FINDINGS: Lines and Tubes: None Lungs: Clear Pleura: No effusion. No pneumothorax. Cardiomediastinal contours: Unremarkable Bones: Unremarkable IMPRESSION: No acute disease.
[2024-11-02 08:03] LABS: Alanine Aminotransferase 16 U/L (7-40); Alkaline Phosphatase 52 U/L (46-116); Anion Gap 9 (5-15); Aspartate Aminotransferase 23 U/L (<34); BUN/Creatinine Ratio 15.4 (10.0-20.0); Bilirubin, Total 0.7 mg/dL (0.2-1.0); Blood Urea Nitrogen 12 mg/dL (9-23); Calcium 9.9 mg/dL (8.7-10.4); Carbon Dioxide 27 mmol/L (20-31); Potassium 4.4 mmol/L (3.5-5.1); Total Protein 7.7 g/dL (5.7-8.2)
[2024-11-02 08:04] LABS: Albumin 5.1 g/dL (3.2-4.8); Blood Alcohol < 3.0 mg/dL (<10); Chloride 94 mmol/L (98-107); Glucose 118 mg/dL (74-106); Sodium 130 mmol/L (136-145)
[2024-11-02 08:13] LABS: Basophils # (auto) 0.1 10 ^3/uL (0-0.2); Basophils % (auto) 1.1 % (0.0-2.0); Eosinophils # (auto) 0.1 10 ^3/uL (0-0.8); Eosinophils % (auto) 2.3 % (0.0-7.0); Hemoglobin 15.7 g/dL (13.5-17.5); Lymphocytes # (auto) 1.3 10 ^3/uL (0.4-5.4); Lymphocytes % (auto) 26.2 % (10.0-50.0); Mean Corpuscular Hemoglobin 29.5 pg (28.0-32.0); Mean Corpuscular Hgb Conc. 33.5 g/dL (32.0-36.0); Monocytes # (auto) 0.6 10 ^3/uL (0-1.3); Monocytes % (auto) 11.9 % (0.0-12.0); Neutrophils % (auto) 58.5 % (37.0-80.0); Nucleated Red Blood Cells % 0.1 %; Platelet Count (auto) 292 10^3/uL (140-450); Red Blood Cells 5.34 10^6/uL (4.5-5.90); Red Cell Distribution Width 15.7 % (11.8-14.3); White Blood Cell 5.1 10^3/uL (4.4-10.8)
[2024-11-02 08:30] VITALS: PULSE 65; RESP 20; O2SAT 96
[2024-11-02] MEDS: SODIUM CHLORIDE 0.9% 1,000 ML IV ONE ×2 (08:30→10:52)
[2024-11-02 08:52] LABS: Urine Bacteria None Seen /hpf (None Seen)
[2024-11-02 08:57] LABS: Urine Blood Negative /uL (Negative); Urine Clarity Clear (Clear); Urine Color Colorless (Yellow); Urine Protein, UAD Negative (Negative); Urine Specific Gravity 1.011 (1.001-1.035); Urine Squamous Epithelial Cell None Seen /hpf (<5); Urine Urobilinogen Normal (Negative)
[2024-11-02 09:11] LABS: Amphetamine Screen, Urine Neg (NEGATIVE); Barbiturate Scree,Urine Neg (NEGATIVE); Cannabinoid Screen, Urine Neg (NEGATIVE); Opiate Scree,Urine Neg (NEGATIVE); Phencyclidine Screen, Urine Neg (NEGATIVE)
[2024-11-02 09:12] LABS: Benzodiazephine Screen, Urine Neg (NEGATIVE); Cocaine Screen, Urine Neg (NEGATIVE)
[2024-11-02] MEDS ORDERED: ONDANSETRON HCL 4 MG/2 ML VIAL IV PRN ×2 (10:15→10:30)
[2024-11-02] MEDS ORDERED: DOCUSATE SOD 100 MG CAP PO PRN ×2 (10:15→10:30)
[2024-11-02] MEDS ORDERED: ACETAMINOPHEN 325 MG TAB PO PRN ×2 (10:15→10:30)
--- NOTE | 2024-11-02 10:28 | DVHHP2 ---
History of Present Illness Reason for Visit: ALOC History of Present Illness Kali Momin is a 63-year-old male with past medical history of hyperlipidemia, diabetes, Prader-Willi syndrome, anxiety, and depression who was brought to the hospital via EMS due to ALOC. Patient lives with his mother and father who are his caretakers. They are bedside and state that last night she woke up about 0115 to get a drink and Kali was in the bathroom. Around 0500 the mother got up to start her day. She went into his room and he would not wake up or respond to her. They tried moving him with minimal response, so EMS was called and patient was brought to the ER. On arrival to ER patient was only responsive to painful stimuli. He slowly began waking up a couple hours after arrival to ER. On my assessment he is alert and talking, mother at the bedside states he is doing better, but not completely back to himself. Patient has chronic hyponatremia, he follows with endocrinology. Cardiovascular: hyperipidemia POT OPERATOR: Other (Prader-Willi syndrome) Heme/Onc: Cancer (skin) Psych: Anxiety, Depression Endocrine: Diabetes Smoke: No ALCOHOL: none Drugs: None Lives: with Family Domestic Violence: Neg Review of Systems Constitutional: Yes: Weakness, Malaise; No: Fever, Chills, Sweats, Other Eyes: No: Pain, Vision change, Conjunctivae inflammation, Eyelid inflammation, Other, Redness ENT: No: Ear pain, Ear discharge, Nose pain, Nose discharge, Nose congestion, Mouth pain, Mouth swelling, Throat pain, Throat swelling, Other Respiratory: No: Cough, Dry, Shortness of breath, SOB with excertion, Wheezing, Hemoptysis, Pleuritic Pain, Sputum, Wheezing, Other Cardiovascular: No: Chest Pain, Palpitations, Orthopnea, Paroxysmal Noc. Dyspnea, Edema, Lt Headedness, Other Gastrointestinal: No: Nausea, Vomiting, Abdominal Pain, Diarrhea, Constipation, Melena, Hematochezia, Other Genitourinary: No Dysuria, No Frequency, No Incontinence, No Hematuria, No Ret ention, No Other Musculoskeletal: No: other, neck pain, shoulder pain, arm pain, back pain, hand pain, leg pain, foot pain Skin: No: Rash, Lesions, Jaundice, Bruising, Other Neurological: Weakness, Confusion; No: Numbness, Incoordination, Change in speech, Seizures, Other Allergies: Coded Allergies: Amoxicillin (Verified Allergy, Mild, 07/07/10) Clavulanic Acid (Verified Allergy, Mild, 07/07/10) Fluoxetine (Verified Allergy, Unknown, 09/01/24) Medications Current Medications Medications Dose Ordered Sig/Kit Route Start Time Stop Time Status Last Admin Dose Admin Ondansetron HCl 4 mg Q4HP PRN IV 11/02/24 10:15 UNV Docusate Sodium 100 mg BIDPRN PRN PO 11/02/24 10:15 UNV Acetaminophen 650 mg Q6HP PRN PO 11/02/24 10:15 UNV Exam Vital Signs Vital Signs Date Time Temp Pulse Resp B/P (MAP) Pulse Ox O2 Delivery O2 Flow Rate FiO2 11/02/24 09:10 97.8 67 20 149/76 (100) 100 97.8 11/02/24 08:30 Room Air* 0 21 General Appearance: Alert, Cooperative, mild distress HEENT: Atraumatic, PERRLA Respiratory: Clear to auscultation, Normal air movement Cardiovascular: Regular rate, Normal S1, Normal S2, No murmurs Abdominal: Normal bowel sounds, Soft, No tenderness Extremities: No clubbing, No cyanosis Skin: No rashes, No breakdown Psych/Mental Status: Mood NL Labs/Xrays Labs Test 11/02/24 08:45 11/02/24 08:23 11/02/24 07:47 11/02/24 07:45 Range/Units Urine Color Colorless Yellow Urine Clarity Clear Clear Urine pH 7.0 5.0-9.0 Urine Specific [place] 1.011 1.001-1.035 Urine Protein Negative Negative Urine Ketones 1+ H Negative Urine Blood Negative Negative /uL Urine Nitrite Negative Negative Urine Bilirubin Negative Negative Urine Urobilinogen Normal Negative mg/dL Urine Leukocyte Esterase Negative Negative /uL Urine RBC 1 0 - 3 /hpf Urine Microscopic WBC 0-3 /HPF Urine Squamous Epithelial Cells None seen <5 /hpf Urine Bacteria None seen None Seen /hpf Urine Glucose 4+ H Normal mg/dL Urine Opiates Screen Neg NEGATIVE Urine Fentanyl Screen Neg NEGATIVE Urine Barbiturates Screen Neg NEGATIVE Urine Phencyclidine Screen Neg NEGATIVE Urine Amphetamines Screen Neg NEGATIVE Urine Benzodiazepines Screen Neg NEGATIVE Urine Cocaine Screen Neg NEGATIVE Urine Cannabinoids Screen Neg NEGATIVE Troponin I High Sensitivity 5 </=54 ng/L POC Glucose 103 70-106 mg/dl White Blood Count 5.1 4.4-10.8 10^3/uL Red Blood Count 5.34 4.5-5.90 10^6/uL Hemoglobin 15.7 13.5-17.5 g/dL Hematocrit 47.0 41.0-53.0 % Mean Corpuscular Volume 88.0 80.0-100.0 fL Mean Corpuscular Hemoglobin 29.5 28.0-32.0 pg Mean Corpuscular Hemoglobin Concent 33.5 32.0-36.0 g/dL Red Cell Distribution Width 15.7 H 11.8-14.3 % Platelet Count 292 140-450 10^3/uL Mean Platelet Volume 6.8 L 6.9-10.8 fL Neutrophils (%) (Auto) 58.5 37.0-80.0 % Lymphocytes (%) (Auto) 26.2 10.0-50.0 % Monocytes (%) (Auto) 11.9 0.0-12.0 % Eosinophils (%) (Auto) 2.3 0.0-7.0 % Basophils (%) (Auto) 1.1 0.0-2.0 % Neutrophils # (Auto) 3.0 1.6-8.6 10 ^3/uL Lymphocytes # (Auto) 1.3 0.4-5.4 10 ^3/uL Monocytes # (Auto) 0.6 0-1.3 10 ^3/uL Eosinophils # (Auto) 0.1 0-0.8 10 ^3/uL Basophils # (Auto) 0.1 0-0.2 10 ^3/uL Nucleated Red Blood Cells 0.1 % B-Type Natriuretic Peptide 20.28 0-100 pg/mL Test 11/02/24 07:21 Range/Units Sodium Level 130 L 136-145 mmol/L Potassium Level 4.4 3.5-5.1 mmol/L Chloride Level 94 L 98-107 mmol/L Carbon Dioxide Level 27 20-31 mmol/L Anion Gap 9 5-15 Blood Urea Nitrogen 12 9-23 mg/dL Creatinine 0.78 0.700-1.30 mg/dL Glomerular Filtration Rate Calc 101 >90 mL/min BUN/Creatinine Ratio 15.4 10.0-20.0 Serum Glucose 118 H 74-106 mg/dL Lactic Acid Level 1.4 0.4-2.0 mmol/L Calcium Level 9.9 8.7-10.4 mg/dL Total Bilirubin 0.7 0.2-1.0 mg/dL Aspartate Amino Transferase (AST) 23 <34 U/L Alanine Aminotransferase (ALT) 16 7-40 U/L Alkaline Phosphatase 52 46-116 U/L Total Protein 7.7 5.7-8.2 g/dL Albumin 5.1 H 3.2-4.8 g/dL Plasma/Serum Blood Alcohol < 3.0 <10 mg/dL EXAM: CT HEAD WITHOUT CONTRAST FINDINGS: There is no evidence of acute intracranial hemorrhage, extra-axial collection, mass effect, midline shift, herniation or hydrocephalus. There are periventricular and subcortical hypodensities, nonspecific, but likely reflecting sequelae of chronic microvascular ischemic changes. The ventricles, sulci and cisterns are age appropriate. The brand-white differentiation is intact. The mastoid air cells are clear. There is mucosal thickening in the left maxillary sinus. No depressed calvarial fracture. The surrounding soft tissues are unremarkable. IMPRESSION: 1. No acute intracranial abnormality. CHEST RADIOGRAPH FINDINGS: Lines and Tubes: None Lungs: Clear Pleura: No effusion. No pneumothorax. Cardiomediastinal contours: Unremarkable Bones: Unremarkable IMPRESSION: No acute disease. Assessment/Plan Assessment/Plan Assessment: Metabolic encephalopathy, possible medication induced, Hyponatremia, Hyperlipidemia, Diabetes, Plan: Admit to Med-Surg, IV hydration, Accu checks Q AC&HS with sliding scale, Home medications reconciled, Plan discussed with: Patient, Other (Mom) My Orders Orders - JUAN C CARL Procedure Category Date Status Time Admit ADMIT 11/02/24 Transmitted 10:15 Code Status CODE 11/02/24 Transmitted 10:15 2 Gm Sodium Diet DIET 11/02/24 Transmitted Lunch Ondansetron Hcl PHA 11/02/24 Logged (Zofran) 10:15 Docusate Sodium PHA 11/02/24 Logged Capsule (Colace 10:15 Complete Blood Count LAB 11/03/24 Verified 04:00 Comprehensive LAB 11/03/24 Verified Metabolic Panel 04:00 Condition: Serious ERIN 11/02/24 In Process 10:15 Acetaminophen Tablet PHA 11/02/24 Logged (Tylenol Tablet) 10:15 Pioglitazone Hcl PHA 11/03/24 Transmitted Tablet (Actos Tablet) 10:00 (Nf) Clomipramine Hcl PHA 11/02/24 Transmitted (Clomipramine Hydr 22:00 (Nf) Dapagliflozin PHA 11/03/24 Transmitted Propanediol (Farxiga) 10:00 (Nf) Risperidone PHA 11/03/24 Transmitted 10:00 Atorvastatin (Lipitor) PHA 11/02/24 Transmitted 22:00 Date of Service: Nov 02, 2024 Billing Provider: JUAN C CARL Common Visit Codes: 21266-[id number] INP/OBS CARE (MOD) JUAN C CARL Nov 02, 2024 10:28
[2024-11-02] MEDS ORDERED: SODIUM CHLORIDE 0.9% 1,000 ML IV ONE (10:30)
[2024-11-02] MEDS ORDERED: DEXTROSE (50%) 50ML SYRG IV PRN (10:30)
[2024-11-02] MEDS: InsuLIN REG 1unit/0.01ml Soln (100units/ml) SC SCH (11:30)
[2024-11-02] MEDS: ACCU-CHEK COMFORT CURVE STRIP VI SCH (11:43)
[2024-11-02 14:41] VITALS: BP 125/69; PULSE 75; RESP 17; TEMP 97.2; O2SAT 99
[2024-11-02] MEDS ORDERED: MORPHINE SULFATE INJ 2 MG/ml SYRG IV PRN (15:15)
[2024-11-02] MEDS ORDERED: NITROGLYCERIN 0.4 MG SL TAB SL PRN (15:15)
[2024-11-02] MEDS ORDERED: ATORVASTATIN 20 MG TAB PO SCH ×2 (22:00)
[2024-11-02] MEDS ORDERED: CLOMIPRAMINE HCL 25 MG PO SCH (22:00)
[2024-11-02] MEDS ORDERED: InsuLIN REG 1unit/0.01ml Soln (100units/ml) SC SCH (22:00)
[2024-11-02] MEDS ORDERED: CLOMIPRAMINE HCL PO SCH (22:00)
[2024-11-03] MEDS ORDERED: PIOGLITAZONE HYDROCHLORIDE 30 MG TAB PO SCH ×2 (10:00)
[2024-11-03] MEDS ORDERED: Dapagliflozin Propanediol (Farxiga) 10MG TABLETS PO SCH (10:00)
[2024-11-03] MEDS ORDERED: PATIENTS OWN MEDICATION (Dapagliflozin Propanediol (Farxiga) 1 TAB) PO SCH (10:00)
[2024-11-03] MEDS ORDERED: risperiDONE 1 MG TAB PO SCH (10:00)
[2024-11-03] MEDS ORDERED: PATIENTS OWN MEDICATION (Risperidone 1 TAB) PO SCH (10:00)
== END 2024-11-02 16:30 | disposition home or self-care (01) | DRG 640 ==
LOC: ER 06:22 → EDBD 06:22 → OVERFLOW 10:15 → ER 10:17 → OVERFLOW 10:17 → CENTRAL 14:27
PROVIDERS: ADMIT Nurse Practitioner Family; ATTEND Nurse Practitioner Family
DX: E87.1 Hypo-osmolality and hyponatremia (principal); G93.41 Metabolic encephalopathy; F32.A Depression, unspecified; E78.5 Hyperlipidemia, unspecified; E11.9 Type 2 diabetes mellitus without complications; F41.9 Anxiety disorder, unspecified; I10 Essential (primary) hypertension; Z88.0 Allergy status to penicillin; Z88.8 Allergy status to other drugs, medicaments and biological substances; Z87.891 Personal history of nicotine dependence
CPT/HCPCS: 36415; 70450; 71045; 80053; 80307; 80320; 81001; 82962; 83605; 83880; 84484; 85025; 87040; 93005; 96360; 99291; G0378